=== PATIENT | male | born 1995 | race Caucasian/White ===

== ENCOUNTER 2018-07-12 10:15 | Emergency (ER) | payer SELFPAY ==
[2018-07-12 10:17] VITALS: BMI 22.8
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
[2018-07-12 10:55] LABS: BASO % 0.4 % (0.0-2.0); EOS % 0.3 % (0.0-4.0); LYMPH % 26.9 % (20.0-40.0); MEAN CELL VOLUME 85.8 fl (80.0-94.0); MEAN CORPUSCULAR HGB CONC 33.8 g/dL (33.0-37.0); MEAN PLATELET VOLUME 8.3 fl (7.2-11.7); MONO # 0.7 K/uL (0.0-0.8); MONO % 8.7 % (0.0-10.0); NEUT # 4.8 K/uL (1.8-7.0); NEUT % 63.7 % (50.0-75.0); RBC 5.18 Mil/uL (4.40-5.90); RED CELL DISTRIBUTION WIDTH 13.8 % (11.5-14.5); WHITE BLOOD COUNT 7.5 K/uL (4.8-10.8)
[2018-07-12 11:08] LABS: ALB/GLOB RATIO 1.4 (1.0-2.1); ALBUMIN 4.8 g/dL (3.5-5.0); ALT/SGPT 29 U/L (21-72); AST/SGOT 31 U/L (17-59); BLOOD UREA NITROGEN 9 mg/dl (9-20); CALCIUM 9.3 mg/dL (8.4-10.2); GFR NON-AFRICAN AMERICAN > 60
[2018-07-12] MEDS ORDERED: Potassium Chloride 20 mEq ER Tab PO ONE ×2 (11:26→16:19)
[2018-07-12 12:26] LABS: BARBITURATES, UR NEGATIVE (NEGATIVE); BENZODIAZEPINES, UR POSITIVE (NEGATIVE); OPIATES, UR NEGATIVE (NEGATIVE); PHENCYCLIDINE, UR NEGATIVE (NEGATIVE)
--- NOTE | 2018-07-12 13:15 | RAD ---
HISTORY: cough COMPARISON: None available TECHNIQUE: Chest, one view. FINDINGS: LUNGS: No focal consolidation. Please note that chest x-ray has limited sensitivity for the detection of pulmonary masses. PLEURA: No significant pleural effusion identified. No definite pneumothorax . CARDIOVASCULAR: The cardiomediastinal silhouette appears within normal limits of size. No significant atherosclerotic calcification present. OSSEOUS STRUCTURES: No acute osseous abnormality identified. VISUALIZED UPPER ABDOMEN: Unremarkable. OTHER FINDINGS: None. IMPRESSION: No acute findings identified.
--- NOTE | 2018-07-12 17:03 | ED PDOC ---
- Laboratory Results Result Diagrams: 07/12/18 10:40 07/12/18 10:40 Lab Results: Total Bilirubin 0.4 mg/dl (0.2-1.3) 07/12/18 10:40 AST 31 U/L (17-59) 07/12/18 10:40 ALT 29 U/L (21-72) 07/12/18 10:40 Alkaline Phosphatase 79 U/L (38-126) 07/12/18 10:40 Total Protein 8.2 G/DL (6.3-8.2) 07/12/18 10:40 Albumin 4.8 g/dL (3.5-5.0) 07/12/18 10:40 Globulin 3.4 gm/dL (2.2-3.9) 07/12/18 10:40 Albumin/Globulin Ratio 1.4 (1.0-2.1) 07/12/18 10:40 - ECG O2 Sat by Pulse Oximetry: 99 (RA) - Progress ED Course And Treament: 5p Rec'd endorsement from Dr Garcia. Pt paranois delusion, requiring medication. Medically cleared and pending [facility] [place] for involuntary psych admission. 8p Pt calm in no acute distress. 11pm Pt continues to be stable at this time. 1:[address] observation [address] Endors[address] Orr. Pending [facility] evaluation for involuntary psychiatric admission Condition: Unchanged Disposition - Clinical Impression Clinical Impression: Paranoia, Schizoaffective disorder - POA Present On Arrival: None - Disposition Disposition: Transfer of Care Disposition Time: 00:00 Condition: STABLE
--- NOTE | 2018-07-12 19:03 | CARD ---
APPROVED REPORT Date of service: 07/12/2018 EKG Measurement Heart [id number] <Conclusion> Sinus rhythm with marked sinus arrhythmia Otherwise normal ECG
--- NOTE | 2018-07-13 01:01 | ED PDOC ---
- Laboratory Results Result Diagrams: 07/12/18 10:40 07/12/18 10:40 Lab Results: Total Bilirubin 0.4 mg/dl (0.2-1.3) 07/12/18 10:40 AST 31 U/L (17-59) 07/12/18 10:40 ALT 29 U/L (21-72) 07/12/18 10:40 Alkaline Phosphatase 79 U/L (38-126) 07/12/18 10:40 Total Protein 8.2 G/DL (6.3-8.2) 07/12/18 10:40 Albumin 4.8 g/dL (3.5-5.0) 07/12/18 10:40 Globulin 3.4 gm/dL (2.2-3.9) 07/12/18 10:40 Albumin/Globulin Ratio 1.4 (1.0-2.1) 07/12/18 10:40 - ECG O2 Sat by Pulse Oximetry: 99 (RA) Medical Decision Making Medical Decision Makin:00 Patient signed out to me by Rosio Patel MD pending [facility] screener. 2:00 Patient resting comfortably, vital signs stable. 3:04 Patient accepted for involuntary admission at [facility] for schizoaffective disorder. 5:51 Patient agitated and uncooperative. Haldol and ativan ordered. 7:00 Patient signed out to Brett Edwards III, DO pending [facility] bed availability. ScribeAttestation: Documented byTana Sesay, acting as a scribe for Clay Orr MD. Provider ScribeAttestation: All medical record entries made by the Scribe were at my direction and personally dictated by me. I have reviewed the chart and agree that the record accurately reflects my personal performance of the history, physical exam, medical decision making, and the department course for this patient. I have also personally directed, reviewed, and agree with the discharge instructions and disposition. Disposition - Clinical Impression Clinical Impression: Paranoia, Schizoaffective disorder - POA Present On Arrival: None - Disposition Disposition: Transfer of Care Disposition Time: 07:00 Condition: FAIR Forms: [employer] (Azeri)
--- NOTE | 2018-07-13 07:18 | ED PDOC ---
- Laboratory Results Result Diagrams: 07/12/18 10:40 07/13/18 09:51 Lab Results: Total Bilirubin 0.4 mg/dl (0.2-1.3) 07/12/18 10:40 AST 31 U/L (17-59) 07/12/18 10:40 ALT 29 U/L (21-72) 07/12/18 10:40 Alkaline Phosphatase 79 U/L (38-126) 07/12/18 10:40 Total Protein 8.2 G/DL (6.3-8.2) 07/12/18 10:40 Albumin 4.8 g/dL (3.5-5.0) 07/12/18 10:40 Globulin 3.4 gm/dL (2.2-3.9) 07/12/18 10:40 Albumin/Globulin Ratio 1.4 (1.0-2.1) 07/12/18 10:40 - ECG O2 Sat by Pulse Oximetry: 99 (RA) Pulse Ox Interpretation: Normal Medical Decision Making Medical Decision Makin:00 Dr. Edwards did not resume patient care as recognized. Patient care endorsed to Dr. Cabrera from Dr. Orr pending bed at [facility] [place]. 07:35 Patient is resting comfortably in bed and he is in no distress. 07:51 [facility] are requesting new potassium level and urinalysis, in addition to urine dipstick. 08:51 Patient continues to be on observation for 1:1. repeat potassium is normal. 12:56 Patient resting comfortably and he is in no distress [address] edwards pending [facility] bed availalbility pt currently calm, resting in no distress. Scribe Attestation: Documented by Shaan Singh, acting as a scribe for John Cabrera MD. Provider Scribe Attestation: All medical record entries made by the Scribe were at my direction and personally dictated by me. I have reviewed the chart and agree that the record accurately reflects my personal performance of the history, physical exam, medical decision making, and the department course for this patient. I have also personally directed, reviewed, and agree with the discharge instructions and disposition. Disposition - Clinical Impression Clinical Impression: Paranoia, Schizoaffective disorder - POA Present On Arrival: None - Disposition Disposition: Transfer of Care Disposition Time: 17:04 Condition: STABLE
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
[2018-07-13 10:27] LABS: ALB/GLOB RATIO 1.3 (1.0-2.1); ALBUMIN 4.5 g/dL (3.5-5.0); ALT/SGPT 33 U/L (21-72); AST/SGOT 50 U/L (17-59); BLOOD UREA NITROGEN 10 mg/dl (9-20); CALCIUM 9.6 mg/dL (8.4-10.2); GFR NON-AFRICAN AMERICAN > 60
[2018-07-13 15:26] LABS: URINE BACTERIA RARE (<OCC); URINE BILIRUBIN NEGATIVE (NEGATIVE); URINE BLOOD NEGATIVE (NEGATIVE); URINE COLOR YELLOW (YELLOW); URINE GLUCOSE (UA) NEG (NEGATIVE); URINE LEUKOCYTE ESTERASE NEG Leu/uL (Negative); URINE PROTEIN NEGATIVE (NEGATIVE); URINE UROBILINOGEN 0.2-1.0 mg/dL (0.2-1.0)
[2018-07-13 15:39] LABS: URINE CLARITY SLIGHT-CLOUDY (Clear)
--- NOTE | 2018-07-13 17:42 | ED PDOC ---
- Laboratory Results Result Diagrams: 07/12/18 10:40 07/13/18 09:51 Lab Results: Total Bilirubin 0.8 mg/dl (0.2-1.3) 07/13/18 09:51 AST 50 U/L (17-59) 07/13/18 09:51 ALT 33 U/L (21-72) 07/13/18 09:51 Alkaline Phosphatase 79 U/L (38-126) 07/13/18 09:51 Total Protein 7.8 G/DL (6.3-8.2) 07/13/18 09:51 Albumin 4.5 g/dL (3.5-5.0) 07/13/18 09:51 Globulin 3.4 gm/dL (2.2-3.9) 07/13/18 09:51 Albumin/Globulin Ratio 1.3 (1.0-2.1) 07/13/18 09:51 Urine Color Yellow (YELLOW) 07/13/18 15:08 Urine Clarity Slight-cloudy (Clear) 07/13/18 15:08 Urine pH 7.0 (5.0-8.0) 07/13/18 15:08 Ur Specific Mason 1.016 (1.003-1.030) 07/13/18 15:08 Urine Protein Negative mg/dL (NEGATIVE) 07/13/18 15:08 Urine Glucose (UA) Neg mg/dL (NEGATIVE) 07/13/18 15:08 Urine Ketones Negative mg/dL (NEGATIVE) 07/13/18 15:08 Urine Blood Negative (NEGATIVE) 07/13/18 15:08 Urine Nitrate Negative (NEGATIVE) 07/13/18 15:08 Urine Bilirubin Negative (NEGATIVE) 07/13/18 15:08 Urine Urobilinogen 0.2-1.0 mg/dL (0.2-1.0) 07/13/18 15:08 Ur Leukocyte Esterase Neg Brooks/uL (Negative) 07/13/18 15:08 Urine RBC (Auto) 1 /hpf (0-3) 07/13/18 15:08 Urine Microscopic WBC 4 /hpf (0-5) 07/13/18 15:08 Urine Bacteria Rare (<OCC) 07/13/18 15:08 - ECG O2 Sat by Pulse Oximetry: 99 (RA) Pulse Ox Interpretation: Normal Medical Decision Making Medical Decision Makin:00 Bedside rounds performed and patient is ambulatory as well as semi-hyperactive but easily redirected. UA was reviewed and it is unremarkable and repeat of Potassium presented no abnormalities. Patient continues to remain on 1 to 1 observation. Patient care endorsed from Dr. Cabrera to Dr. Edwards pending bed availability at [facility]. 1805 patient ate dinner and remains redirectable, but hyperactivity and pacing increasing. Psychiatry note from this morning reviewed, recommended zyprexa 10mg IM q12 prn agitation, stat dose ordered. 183 per RN patient refused zyprexa IM, thus PO zyprexa ordered but he then refused that also. Spoke to patient attempt to redirect and encourage compliance, he's requesting benzodiazepine for anxiety, thus ativan 1mg ordered in hope of improving anxiety for willingness to take antipsychotic medication to improve insight and clarity of thought. [address] Orr, per crisis, beds at [facility] not anticipated overnight. Will remain on 1:1 and psychiatrist will re-evaluate in the morning. ------ Scribe Attestation: Documented by Shaan Singh, acting as a scribe for Brett Edwards III, DO. Provider Scribe Attestation: All medical record entries made by the Scribe were at my direction and personally dictated by me. I have reviewed the chart and agree that the record accurately reflects my personal performance of the history, physical exam, medical decision making, and the department course for this patient. I have also personally directed, reviewed, and agree with the discharge instructions and di sposition. Disposition - Clinical Impression Clinical Impression: Paranoia, Schizoaffective disorder - POA Present On Arrival: None - Disposition Disposition: Transfer of Care Disposition Time: 19:04 Condition: STABLE Forms: [employer] (Portuguese) Patient Signed Over To: Clay Orr Handoff Comments: [facility] bed availability
--- NOTE | 2018-07-13 19:39 | ED PDOC ---
- Laboratory Results Result Diagrams: 07/12/18 10:40 07/13/18 09:51 Lab Results: Total Bilirubin 0.8 mg/dl (0.2-1.3) 07/13/18 09:51 AST 50 U/L (17-59) 07/13/18 09:51 ALT 33 U/L (21-72) 07/13/18 09:51 Alkaline Phosphatase 79 U/L (38-126) 07/13/18 09:51 Total Protein 7.8 G/DL (6.3-8.2) 07/13/18 09:51 Albumin 4.5 g/dL (3.5-5.0) 07/13/18 09:51 Globulin 3.4 gm/dL (2.2-3.9) 07/13/18 09:51 Albumin/Globulin Ratio 1.3 (1.0-2.1) 07/13/18 09:51 Urine Color Yellow (YELLOW) 07/13/18 15:08 Urine Clarity Slight-cloudy (Clear) 07/13/18 15:08 Urine pH 7.0 (5.0-8.0) 07/13/18 15:08 Ur Specific [place] 1.016 (1.003-1.030) 07/13/18 15:08 Urine Protein Negative mg/dL (NEGATIVE) 07/13/18 15:08 Urine Glucose (UA) Neg mg/dL (NEGATIVE) 07/13/18 15:08 Urine Ketones Negative mg/dL (NEGATIVE) 07/13/18 15:08 Urine Blood Negative (NEGATIVE) 07/13/18 15:08 Urine Nitrate Negative (NEGATIVE) 07/13/18 15:08 Urine Bilirubin Negative (NEGATIVE) 07/13/18 15:08 Urine Urobilinogen 0.2-1.0 mg/dL (0.2-1.0) 07/13/18 15:08 Ur Leukocyte Esterase Neg Brooks/uL (Negative) 07/13/18 15:08 Urine RBC (Auto) 1 /hpf (0-3) 07/13/18 15:08 Urine Microscopic WBC 4 /hpf (0-5) 07/13/18 15:08 Urine Bacteria Rare (<OCC) 07/13/18 15:08 - ECG O2 Sat by Pulse Oximetry: 99 (RA) Pulse Ox Interpretation: Normal Medical Decision Making Medical Decision Makin:00 Patient endorsed to this provider by Dr. Edwards at bedside. Patient is pending bed availability at [facility] for involuntary commitment. He is resting comfortably with stable vitals. Patient is requesting medication to make him feel calmer which has been ordered. IM Zyprexa given. 20:00 On re-evaluation, patient remains resting comfortably with stable vitals. 21:00 Patient continues to be in no distress and resting comfortably. 22:00 Patient is in no distress and has stable vitals. 23:00 Upon re-evaluation, patient continues to be calm and in no acute distress. 00:00 Patient is resting comfortably and not offering any medical complaints. Vitals are within normal limits. 01:15 Patient remains resting comfortably with stable vitals. A bed became available for him at [facility]. Arrangements were made for transport to that facility with S. 02:25 Patient was pciked up by S and transported to [facility]. ScribeAttestation: Documented byOpal Washington, acting as a scribe for Clay Orr MD. Provider ScribeAttestation: All medical record entries made by the Scribe were at my direction and personally dictated by me. I have reviewed the chart and agree that the record accurately reflects my personal performance of the history, physical exam, medical decision making, and the department course for this patient. I have also personally directed, reviewed, and agree with the discharge instructions and disposition. Disposition - Clinical Impression Clinical Impression: Paranoia, Schizoaffective disorder - POA Present On Arrival: None - Disposition Disposition: Other Institution ([facility]) Disposition Time: 02:25 Condition: STABLE Forms: [employer] (French)
[2018-07-14 00:40] VITALS: BP 117/65; PULSE 84; RESP 19; TEMP 98.7
[2018-07-14] MEDS ORDERED: guaiFENesin 200 mg/10 ml Syrup UD PO STA (01:32)
[2018-07-14] MEDS ORDERED: guaiFENesin 100 mg/5 ml Syrup UD ONE (01:40)
[2018-07-14 02:53] VITALS: O2SAT 99
== END 2018-07-14 02:20 | disposition short-term general hospital (02) ==
LOC: EDBD 10:15 → H.ER 10:15
DX: F22 Delusional disorders (principal); F25.9 Schizoaffective disorder, unspecified; F12.90 Cannabis use, unspecified, uncomplicated; F17.210 Nicotine dependence, cigarettes, uncomplicated; Z86.59 Personal history of other mental and behavioral disorders; I10 Essential (primary) hypertension; F90.9 Attention-deficit hyperactivity disorder, unspecified type
CPT/HCPCS: 71045; 80053; 81003; 85025; 87086; 93005; 96372; G0480; J1630; J2060